=== PATIENT | male | born 1955 | race Caucasian/White ===

== ENCOUNTER 2022-03-04 11:18 | Outpatient (CLI) | payer OTHER ==
[~2022-03-04 11:18] MED LIST: Iopamidol 370 76% 50 ML VIAL FS ONE
== END 2022-03-04 11:19 | disposition home or self-care (01) ==
LOC: BICCT 11:18
PROVIDERS: ATTEND Physician Assistant Medical
DX: R19.7 Diarrhea, unspecified (principal); I10 Essential (primary) hypertension; I71.40 Abdominal aortic aneurysm, without rupture, unspecified; N28.1 Cyst of kidney, acquired; K57.30 Diverticulosis of large intestine without perforation or abscess without bleeding; Z90.49 Acquired absence of other specified parts of digestive tract
CPT/HCPCS: 74177; 82565; Q9967

== ENCOUNTER 2022-10-08 08:09 | Outpatient (CLI) | payer OTHER ==
[2022-10-08] MEDS ORDERED: Iopamidol 370 76% 100 ML VIAL ONE (10:04)
== END 2022-10-08 08:10 | disposition home or self-care (01) ==
LOC: CT 08:09
PROVIDERS: ATTEND Urology
DX: C61 Malignant neoplasm of prostate (principal)
CPT/HCPCS: 74177; 78306; 82565; A9503; Q9967

== ENCOUNTER 2023-02-07 13:35 | Outpatient (CLI) | payer OTHER ==
[~2023-02-07 13:35] MED LIST changes: -Iopamidol 370 76% 50 ML VIAL FS ONE; +Iopamidol-370 76% 500 ML MDV (1 ML CHARGE) ONE
== END 2023-02-07 13:36 | disposition home or self-care (01) ==
LOC: RAD 13:35
PROVIDERS: ATTEND Urology
DX: C61 Malignant neoplasm of prostate (principal)
CPT/HCPCS: 51600; 74430; Q9967

== ENCOUNTER 2023-02-14 10:50 | Outpatient (CLI) | payer OTHER ==
[2023-02-14] MEDS ORDERED: Iopamidol-370 76% 500 ML MDV (1 ML CHARGE) ONE (15:48)
== END 2023-02-14 10:51 | disposition home or self-care (01) ==
LOC: RAD 10:50
PROVIDERS: ATTEND Urology
DX: C61 Malignant neoplasm of prostate (principal); T80.81 Extravasation of vesicant agent
CPT/HCPCS: 51600; 74430; Q9967

== ENCOUNTER 2024-04-15 09:03 | Outpatient (CLI) | payer OTHER | END 2024-04-15 09:04 | disposition home or self-care (01) | LOC: CT 09:03 | PROVIDERS: ATTEND Internal Medicine Cardiovascular Disease | DX: I63.9 Cerebral infarction, unspecified (principal) | CPT/HCPCS: 36415; 70470; 82565 ==

== ENCOUNTER 2025-05-19 07:48 | Inpatient (IN) | payer OTHER ==
[2025-05-19 08:20] LABS: #Basophils 0.04 10x3/uL (0.0-0.2); #Eosinophils 0.30 10x3/uL (0.0-0.7); #Monocytes 0.72 10x3/uL (0.11-0.59); #Neutrophils 6.00 10x3/uL (1.40-6.50); %Basophils 0.4 % (0.0-1.0); %Eosinophils 3.3 % (0.0-10.0); %Lymphocytes 23.0 % (21.0-51.0); %Monocytes 7.8 % (0.0-10.0); %Neutrophils 65.2 % (42.0-75.0); Hematocrit 45.1 % (42.0-52.0); Hemoglobin 15.3 g/dL (14.0-18.0); Mean Corpuscular Hemoglobin 31.5 pg (27.0-31.0); Mean Corpuscular Volume 93.0 fL (78.0-98.0); Platelet Count 232 10x3/uL (130-400); Red Blood Cell (RBC) Count 4.85 mill/uL (4.70-6.10); White Blood Cell (WBC) Count 9.21 10x3/uL (4.8-10.8)
[2025-05-19 08:36] LABS: ALT (SGPT) 21 U/L (Less than 45); AST (SGOT) 25 U/L (11-34); Albumin 4.0 g/dL (3.1-4.5); Alkaline Phosphatase 78 U/L (40-110); Anion Gap 13 mmol/L (10-20); BUN (Urea Nitrogen) 14 mg/dL (8.4-25.7); Bilirubin, Total 0.6 mg/dL (0.3-1.2); Calc. Creatinine Clearance 0 mL/min (70-130); Calcium 9.6 mg/dL (7.8-10.44); Carbon Dioxide 27 mmol/L (23-31); Chloride 102 mmol/L (98-107); Globulin 3.1 g/dL (2.4-3.5); Glucose 121 mg/dL (80-115); Potassium 3.1 mmol/L (3.5-5.1); Sodium 139 mmol/L (136-145)
[2025-05-19 09:18] LABS: Acetaminophen Less than 10 mcg/mL (Less than 10); Salicylate Less than 8.0 mg/dL (Less than 8.0)
[2025-05-19 10:06] LABS: Bacteria/HPF None Seen HPF (None Seen); CAUTI Indications for Culture Alt mental st,lethar; Glucose, Urine (Dipstick) Normal (Negative); Leukocyte Negative Leu/uL (Negative); Protein, Urine (Dipstick) Negative (Neg-Trace); RBC/HPF 0-3 HPF (0-3); Specific Gravity, Urine 1.017 (1.002-1.036); WBC/HPF 0-3 HPF (0-3)
[2025-05-19 10:13] LABS: Urine Culture Reflex No No
[2025-05-19 10:17] LABS: Cocaine Metabolite Screen Negative (Negative); THC/Cannabinoid Screen Negative (Negative); Tricyclic Screen Negative (Negative)
[2025-05-19] MEDS ORDERED: Iopamidol 370 76% 100 ML VIAL ONE (11:53)
[2025-05-19] MEDS ORDERED: Aspirin 325 MG TAB ONE (13:44)
[2025-05-19] MEDS ORDERED: Carvedilol 6.25 MG TAB ONE (13:45)
[2025-05-19] MEDS: Carvedilol 6.25 MG TAB PO SCH ×2 (13:56→18:26)
[2025-05-19] MEDS ORDERED: ALPRAZolam 0.25 MG TAB ONE (14:45)
[2025-05-19] MEDS: ALPRAZolam 0.5 MG TAB PO PRN (14:49)
[2025-05-19 16:39] VITALS: BMI 22.7
[2025-05-19 17:30] LABS: Glucose 116 mg/dL (80-115)
[2025-05-19 21:35] LABS: Glucose 112 mg/dL (80-115)
[2025-05-20 04:24] LABS: Anion Gap 9 mmol/L (10-20); BUN (Urea Nitrogen) 11 mg/dL (8.4-25.7); Calc. Creatinine Clearance 62 mL/min (70-130); Calcium 8.9 mg/dL (7.8-10.44); Carbon Dioxide 26 mmol/L (23-31); Cardiac Risk 3.3 (Less than 4.5); Chloride 104 mmol/L (98-107); Cholesterol 128 mg/dl (< 200 Desired); Glucose 135 mg/dL (80-115); HDL Cholesterol 39 mg/dL (>60 Neg Risk); LDL Cholesterol, Calculated 64 mg/dL; Potassium 3.1 mmol/L (3.5-5.1); Sodium 136 mmol/L (136-145); Triglycerides 124 mg/dL (Less than 150)
[2025-05-20 04:26] LABS: #Basophils 0.04 10x3/uL (0.0-0.2); #Eosinophils 0.31 10x3/uL (0.0-0.7); #Monocytes 0.84 10x3/uL (0.11-0.59); #Neutrophils 6.31 10x3/uL (1.40-6.50); %Basophils 0.4 % (0.0-1.0); %Eosinophils 3.3 % (0.0-10.0); %Lymphocytes 19.1 % (21.0-51.0); %Monocytes 9.0 % (0.0-10.0); %Neutrophils 67.8 % (42.0-75.0); Hematocrit 40.8 % (42.0-52.0); Hemoglobin 13.5 g/dL (14.0-18.0); Mean Corpuscular Hemoglobin 31.3 pg (27.0-31.0); Mean Corpuscular Volume 94.4 fL (78.0-98.0); Platelet Count 218 10x3/uL (130-400); Red Blood Cell (RBC) Count 4.32 mill/uL (4.70-6.10); White Blood Cell (WBC) Count 9.32 10x3/uL (4.8-10.8)
[2025-05-20] MEDS: Enoxaparin 40 MG (0.4 mL) SYRINGE SC SCH (09:00)
[2025-05-20] MEDS: Valsartan 80 MG TAB PO SCH (11:18)
[2025-05-20] MEDS: Cholecalciferol 1,000 UNITS (25 MCG) TAB PO SCH (11:18)
[2025-05-20] MEDS ORDERED: ALPRAZolam 0.5 MG TAB PO PRN (11:25)
[2025-05-20 12:09] VITALS: BMI 22.7
[2025-05-20 15:44] VITALS: BP 153/82; TEMP 97.4
== END 2025-05-20 16:42 | disposition home or self-care (01) | DRG 65 ==
LOC: ERS 07:48 → ERHOLD 10:59 → PCU 16:31
PROVIDERS: ADMIT Hospitalist; ATTEND Internal Medicine
DX: I63.89 Other cerebral infarction (principal); G81.91 Hemiplegia, unspecified affecting right dominant side; N17.9 Acute kidney failure, unspecified; I10 Essential (primary) hypertension; E78.5 Hyperlipidemia, unspecified; R47.81 Slurred speech; R29.6 Repeated falls; W19.XXXA Unspecified fall, initial encounter; E04.1 Nontoxic single thyroid nodule; R91.1 Solitary pulmonary nodule; Z85.46 Personal history of malignant neoplasm of prostate; Z87.440 Personal history of urinary (tract) infections; Z98.890 Other specified postprocedural states; Z90.79 Acquired absence of other genital organ(s); Z90.49 Acquired absence of other specified parts of digestive tract; Z79.899 Other long term (current) drug therapy; Z79.82 Long term (current) use of aspirin; Z79.02 Long term (current) use of antithrombotics/antiplatelets
CPT/HCPCS: 36415; 36416; 70450; 70496; 70498; 71250; 80053; 80061; 80306; 80307; 81001; 84443; 84484; 85025; 87428; 93005; 96374; J1650; J7120; Q9967